=== PATIENT | female | born 1980 | race Caucasian/White ===

== ENCOUNTER 2020-04-13 14:32 | Outpatient (REF) | payer OTHER, SELFPAY ==
[2020-04-14 10:52] LABS: Triiodothyronine T3 Total 345 ng/dL (76-181)
== END 2020-04-13 14:33 | disposition home or self-care (01) ==
LOC: HO.LAB 14:32
PROVIDERS: PCP Internal Medicine; Visit Provider Internal Medicine
DX: E89.0 Postprocedural hypothyroidism (principal)
CPT/HCPCS: 84439; 84443; 84480

== ENCOUNTER → 2020-05-07 13:51 | Outpatient (BNVA) | payer OTHER, SELFPAY | PROVIDERS: PCP Internal Medicine; Referring Provider Internal Medicine; Visit Provider Internal Medicine | DX: Z13.89 Encounter for screening for other disorder (principal) ==

== ENCOUNTER 2020-07-04 09:29 | Outpatient (REF) | payer OTHER, SELFPAY | END 2020-07-04 09:30 | disposition home or self-care (01) | LOC: CF 09:29 | PROVIDERS: PCP Internal Medicine; Referring Provider Internal Medicine; Visit Provider Internal Medicine | DX: Z76.89 Persons encountering health services in other specified circumstances (principal) ==

== ENCOUNTER 2020-07-05 15:02 | Outpatient (REF) | payer OTHER, SELFPAY ==
[2020-07-05 16:26] LABS: Free T4 (Free Thyroxine) 1.23 ng/dL (0.71-1.85); Thyroid Stimulating Hormone 2.19 uIU/mL (0.32-4.0); Vitamin D 25-OH Total 48.9 ng/mL (>30)
== END 2020-07-05 15:03 | disposition home or self-care (01) ==
LOC: HO.LAB 15:02
PROVIDERS: Visit Provider Internal Medicine
DX: E05.00 Thyrotoxicosis with diffuse goiter without thyrotoxic crisis or storm (principal); E89.0 Postprocedural hypothyroidism; E55.9 Vitamin D deficiency, unspecified
CPT/HCPCS: 36415; 82306; 84439; 84443

== ENCOUNTER 2020-09-27 15:01 | Outpatient (REF) | payer OTHER, SELFPAY ==
[2020-09-27 18:11] LABS: Free T4 (Free Thyroxine) 1.32 ng/dL (0.71-1.85); Thyroid Stimulating Hormone 0.56 uIU/mL (0.32-4.0)
[2020-09-28 09:17] LABS: Triiodothyronine T3 Total 363 ng/dL (76-181)
== END 2020-09-27 15:02 | disposition home or self-care (01) ==
LOC: HO.LAB 15:01
PROVIDERS: PCP Internal Medicine; Visit Provider Internal Medicine
DX: E89.0 Postprocedural hypothyroidism (principal); E05.00 Thyrotoxicosis with diffuse goiter without thyrotoxic crisis or storm
CPT/HCPCS: 36415; 84439; 84443; 84480

== ENCOUNTER → 2020-10-03 09:41 | Outpatient (BNVA) | payer OTHER, SELFPAY | PROVIDERS: PCP Internal Medicine; Visit Provider Internal Medicine ==

== ENCOUNTER 2020-12-11 16:10 | Outpatient (REF) | payer OTHER, SELFPAY ==
[2020-12-11 18:02] LABS: MANUAL DIFF FLAG NO
[2020-12-11 18:09] LABS: Basophils Absolute Auto 0.1 X10*3/uL (0.0-0.2); Basophils Percent Auto 1.1 % (0-2); Eosinophils Percent Auto 10.3 % (0-4); Hematocrit 38.7 % (37-47); Hemoglobin 12.2 g/dl (12.0-16.0); Imm Gran Abs Auto 0.03 X10*3/uL (0.00-0.03); Imm Gran Pct Auto 0.3 % (0.0-0.4); Lymphocytes Absolute Auto 3.1 X10*3/uL (1.2-4.9); Lymphocytes Percent Auto 32.9 % (20-40); Mean Corpuscular HGB Conc 31.5 g/dl (31.0-35.0); Mean Corpuscular Hemoglobin 28.7 pg (27.0-33.0); Mean Corpuscular Volume 91.1 fL (80-98); Mean Platelet Volume 9.8 fL (9.4-12.3); Monocytes Absolute Auto 0.7 X10*3/uL (0.1-1.2); Monocytes Percent Auto 7.7 % (2-11); Neutrophils Absolute Auto 4.5 X10*3/uL (2.0-8.3); Neutrophils Percent Auto 47.7 % (45-73); Platelet Count 377 X10*3/uL (160-400); Red Blood Count 4.25 X10*6/uL (4.20-5.50); White Blood Count 9.4 X10*3/uL (4.8-10.8)
[2020-12-11 18:17] LABS: Iron 65 mcg/dL (30-160); Percent Iron Saturation 14 % (15-50); Total Iron Binding Capacity 449 mcg/dL (228-428); Unsaturated Iron Binding 384 ug/dL
[2020-12-11 18:38] LABS: Ferritin 36 ng/mL (10-122); Free T4 (Free Thyroxine) 1.12 ng/dL (0.71-1.85); Thyroid Stimulating Hormone 1.99 uIU/mL (0.32-4.0)
[2020-12-13 17:47] LABS: Lutenizing Hormone 0.8 mIU/mL; Prolactin 5.2 ng/mL
[2020-12-21 01:32] LABS: Estradiol Free 0.95 pg/mL; Estradiol, Ultrasensitive 67 pg/mL
== END 2020-12-11 16:11 | disposition home or self-care (01) ==
LOC: HO.LAB 16:10
PROVIDERS: PCP Internal Medicine; Visit Provider Internal Medicine
DX: E89.0 Postprocedural hypothyroidism (principal); N92.1 Excessive and frequent menstruation with irregular cycle
CPT/HCPCS: 36415; 82670; 82681; 82728; 83001; 83002; 83540; 84146; 84439; 84443; 85025

== ENCOUNTER → 2021-04-03 08:51 | Outpatient (BNVA) | payer OTHER, SELFPAY | PROVIDERS: PCP Internal Medicine; Visit Provider Internal Medicine ==

== ENCOUNTER 2021-08-12 15:31 | Outpatient (REF) | payer OTHER, SELFPAY | END 2021-08-12 15:32 | disposition home or self-care (01) | LOC: HO.MANLDS 15:31 | PROVIDERS: PCP Internal Medicine; Visit Provider Internal Medicine | DX: E89.0 Postprocedural hypothyroidism (principal) | CPT/HCPCS: 36415; 84443 ==

== ENCOUNTER 2022-02-19 11:31 | Outpatient (REF) | payer OTHER, SELFPAY ==
[2022-02-19 13:21] LABS: Alanine Aminotransferase 21 U/L (0-31); Alkaline Phosphatase 46 U/L (39-117); Anion Gap 17 (12-20); Aspartate Amino Transferase 23 U/L (5-31); Bilirubin Total 0.3 mg/dL (0.0-1.0); Blood Urea Nitrogen 15 mg/dL (9-16); C Reactive Protein 0.57 mg/dL (< or = 0.50); Calcium 8.8 mg/dL (8.4-10.2); Carbon Dioxide 25 mmol/L (22-29); Chloride 104 mmol/L (96-108); Estimated Glomerular Filt Rate > 60; Glucose Random 93 mg/dL (60-115); Potassium 4.1 mmol/L (3.3-5.1); Rheumatoid Factor < 15.0 IU/mL (<15.0); Sodium 142 mmol/L (135-145); Total Protein 6.6 g/dL (6.5-8.0)
[2022-02-19 14:09] LABS: Erythrocyte Sedimentation Rate 6 MM/HR (0-20)
[2022-02-21 05:21] LABS: Lyme Abs Screen <0.90 index
[2022-02-25 15:12] LABS: Anti Nuclear Antibody Screen NEGATIVE (NEGATIVE)
== END 2022-02-19 11:32 | disposition home or self-care (01) ==
LOC: HO.MANLDS 11:31
PROVIDERS: Visit Provider Internal Medicine
DX: M25.50 Pain in unspecified joint (principal)
CPT/HCPCS: 36415; 80053; 85652; 86038; 86039; 86140; 86431; 86617; 86618

== ENCOUNTER 2022-08-15 11:02 | Outpatient (REF) | payer OTHER, SELFPAY ==
[2022-08-15 13:47] LABS: MANUAL DIFF FLAG NO
[2022-08-15 13:52] LABS: Basophils Absolute Auto 0.1 X10*3/uL (0.0-0.2); Basophils Percent Auto 1.8 % (0-2); Eosinophils Absolute Auto 0.7 X10*3/uL (0.0-0.4); Eosinophils Percent Auto 9.8 % (0-4); Hematocrit 38.3 % (37.0-47.0); Hemoglobin 12.3 g/dl (12.0-16.0); Imm Gran Abs Auto 0.02 X10*3/uL (0.00-0.03); Imm Gran Pct Auto 0.3 % (0.0-0.4); Lymphocytes Absolute Auto 2.5 X10*3/uL (1.2-4.9); Lymphocytes Percent Auto 37.1 % (20-40); Mean Corpuscular HGB Conc 32.1 g/dl (31.0-35.0); Mean Corpuscular Hemoglobin 29.1 pg (27.0-33.0); Mean Corpuscular Volume 90.8 fL (80.0-98.0); Mean Platelet Volume 10.2 fL (9.4-12.3); Monocytes Absolute Auto 0.7 X10*3/uL (0.1-1.2); Monocytes Percent Auto 9.8 % (2-11); Neutrophils Absolute Auto 2.7 x10*3/uL (2.0-8.3); Neutrophils Percent Auto 41.2 % (45-73); Platelet Count 257 X10*3/uL (160-400); Red Blood Count 4.22 X10*6/uL (4.20-5.50); White Blood Count 6.7 X10*3/uL (4.8-10.8)
[2022-08-15 15:29] LABS: Alanine Aminotransferase 11 U/L (0-31); Albumin Level 3.9 g/dL (3.5-5.0); Alkaline Phosphatase 40 U/L (39-117); Anion Gap 12 (12-20); Aspartate Amino Transferase 13 U/L (5-31); Bilirubin Total 0.6 mg/dL (0.0-1.0); Blood Urea Nitrogen 12 mg/dL (9-16); Calcium 8.7 mg/dL (8.4-10.2); Carbon Dioxide 25 mmol/L (22-29); Chloride 106 mmol/L (96-108); Estimated Glomerular Filt Rate > 60; Glucose Random 72 mg/dL (60-115); Potassium 3.8 mmol/L (3.3-5.1); Sodium 139 mmol/L (135-145); Total Protein 6.2 g/dL (6.5-8.0)
[2022-08-15 15:31] LABS: Free T4 (Free Thyroxine) 1.15 ng/dL (0.71-1.85); Thyroid Stimulating Hormone 0.72 uIU/mL (0.32-4.0)
[2022-08-18 04:49] LABS: Follicle Stimulating Hormone 4.6 mIU/mL; Lutenizing Hormone 1.3 mIU/mL; Prolactin 7.5 ng/mL
[2022-08-18 13:09] LABS: Thyroglobulin <0.1 ng/mL
[2022-08-19 05:24] LABS: Thyroglobulin Antibodies <1 IU/mL (< or = 1)
[2022-08-21 17:29] LABS: Progesterone <0.1 ng/mL
[2022-08-23 19:48] LABS: Estradiol Free 0.04 pg/mL; Estradiol, Ultrasensitive 4 pg/mL
== END 2022-08-15 11:03 | disposition home or self-care (01) ==
LOC: HO.WFDLDS 11:02
PROVIDERS: Visit Provider Physician Assistant
DX: N94.5 Secondary dysmenorrhea (principal); A08.0 Rotaviral enteritis; E89.0 Postprocedural hypothyroidism
CPT/HCPCS: 36415; 80053; 82670; 82681; 83001; 83002; 84144; 84146; 84432; 84439; 84443; 85025; 86800